=== PATIENT | male | born 1950 | race Caucasian/White ===

== ENCOUNTER 2017-12-17 21:05 | Emergency (ER) | payer MEDICARE ==
[2017-12-17 21:54] VITALS: BP 107/69
[2017-12-17] MEDS ORDERED: Amoxicillin/Clavulanate TAB* 500 MG PO ONE (22:21)
--- NOTE | 2017-12-17 22:21 | UC ---
Throat Pain/Nasal Vinny HPI - HPI Summary HPI Summary: Patient had a fever earlier in evening. Has had sinus pain and congestion has had left upper jaw pain and dental pain--symptoms been going on for almost 2 weeks - History of Current Complaint Hx Obtained From: Patient Onset/Duration: Gradual Onset, Lasting Weeks - 2 Pain Intensity: 6 Pain Scale Used: 0-10 Numeric Cough: Nonproductive Associated Signs & Symptoms: Positive: Negative <Jeana Matthews - Last Filed: 12/31/17 18:53> <Fauzia Corral - Last Filed: 01/01/18 08:25> - History of Current Complaint Chief Complaint: UCRespiratory Stated Complaint: FEVER, EAR ACHE, TOOTH PAIN, HEADACHE Time Seen by Provider: 12/17/17 22:13 - Allergies/Home Medications Allergies/Adverse Reactions: Allergies Allergy/AdvReac Type Severity Reaction Status Date / Time oxycodone Allergy NUMBNESS/TI Verified 12/17/17 21:55 NGLING Home Medications: Home Medications Canagliflozin (NF) [Invokana (NF)] 12/17/17 [History] Ibuprofen TAB* [Advil TAB*] 400 mg PO Q3H PRN 12/17/17 [History Confirmed ] Multivit-Min/Folic/Vit K/Lycop [Men's Multivitamin Caplet] 1 each PO DAILY 12/17 [History Confirmed 12/17/17] glipiZIDE [Glipizide ER] 5 mg PO DAILY 12/17/17 [History Confirmed 12/17/17] PMH/Surg Hx/FS Hx/Imm Hx Previously Healthy: No Endocrine History: Diabetes, Hypothyroidism, Dyslipidemia Cardiovascular History: Hypertension, Atrial Fibrillation - Surgical History Surgical History: Yes Surgery Procedure, Year, and Place: prostatectomy. rotator cuff surgery - Family History Known Family History: Positive: Cardiac Disease, Other - CANCER - Social History Occupation: Works From/At Home Lives: With Family Alcohol Use: Occasionally Substance Use Type: None Smoking Status (MU): Never Smoked Tobacco - Immunization History Most Recent Pneumonia Vaccination: 10/19/15 <Jeana Matthews - Last Filed: 12/31/17 18:53> Review of Systems Constitutional: Fever, Chills, Fatigue Skin: Negative Eyes: Negative ENT: Sore Throat, Nasal Discharge, Sinus Congestion, Sinus Pain/Tenderness Respiratory: Negative Cardiovascular: Negative Gastrointestinal: Negative Genitourinary: Negative Motor: Negative Neurovascular: Negative Musculoskeletal: Negative Neurological: Negative Psychological: Negative Is Patient Immunocompromised?: No All Other Systems Reviewed And Are Negative: Yes <Jeana Matthews - Last Filed: 12/31/17 18:53> Physical Exam Triage Information Reviewed: Yes Appearance: Well-Appearing, No Pain Distress, Well-Nourished Vital Signs: Initial Vital Signs Temp 99.9 F 12/17/17 21:49 Pulse 103 12/17/17 21:49 Resp 16 12/17/17 21:49 BP 107/69 12/17/17 21:49 Pulse Ox 96 12/17/17 21:49 Vital Signs Reviewed: Yes Eye Exam: Normal Eyes: Positive: Conjunctiva Clear ENT Exam: Normal ENT: Positive: Normal ENT inspection, Pharynx normal, Nasal congestion, Nasal drainage, TMs normal, Dental tenderness, Sinus tenderness, Uvula midline. Negative: Tonsillar swelling, Tonsillar exudate, Trismus Dental Exam: Normal Neck exam: Normal Neck: Positive: Supple, Nontender Respiratory Exam: Normal Respiratory: Positive: Chest non-tender, Lungs clear, Normal breath sounds, No respiratory distress, No accessory muscle use Cardiovascular Exam: Normal Cardiovascular: Positive: RRR, No Murmur, Pulses Normal, Brisk Capillary Refill Musculoskeletal Exam: Normal Musculoskeletal: Positive: Strength Intact, ROM Intact, No Edema Neurological Exam: Normal Neurological: Positive: Alert, Muscle Tone Normal Psychological Exam: Normal Psychological: Positive: Normal Response To Family Skin Exam: Normal <Jeana Matthews - Last Filed: 12/31/17 18:53> Vital Signs: Initial Vital Signs Temp 99.9 F 12/17/17 21:49 Pulse 103 12/17/17 21:49 Resp 16 12/17/17 21:49 BP 107/69 12/17/17 21:49 Pulse Ox 96 12/17/17 21:49 <Fauzia Corral - Last Filed: 01/01/18 08:25> Throat Pain/Nasal Course/Dx - Course Assessment/Plan: Augmentin, flonase, increase fluids, mucinex follow with pcp prn - Differential Dx/Diagnosis Provider Diagnoses: acute rhinosinusitis <Jeana Matthews - Last Filed: 12/31/17 18:53> Discharge - Sign-Out/Discharge Documenting (check all that apply): Discharge/Admit/Transfer - Billing Disposition and Condition Condition: STABLE Disposition: Home <Jeana Matthews - Last Filed: 12/31/17 18:53> - Billing Disposition and Condition Condition: STABLE Disposition: Home <Fauzia Corral - Last Filed: 01/01/18 08:25> - Discharge Plan Condition: Stable Disposition: HOME Prescriptions: Amoxicillin/Clavulanate TAB* [Augmentin TAB 875*] 875 mg PO BID #19 tab Fluticasone NASAL SPRAY 50MCG* [Flonase NASAL SPRAY 50MCG*] 2 spray BOTH NARES DAILY #1 btl Patient Education Materials: Sinusitis (ED), How to Use Nasal Minetto (ED) Referrals: Evan Ordaz MD [Primary Care Provider] - If Needed Attestation Statement User Type: Provider Provider Attestation: I was available for consult. This patient was seen by the [facility]. The patient was not presented to, seen by, or examined by me. -Ljj <Fauzia Corral - Last Filed: 01/01/18 08:25>
== END 2017-12-17 22:35 | disposition home or self-care (01) ==
LOC: UCEAST 21:05
DX: J01.90 Acute sinusitis, unspecified (principal); E11.9 Type 2 diabetes mellitus without complications; Z79.84 Long term (current) use of oral hypoglycemic drugs; E03.9 Hypothyroidism, unspecified; E78.5 Hyperlipidemia, unspecified; I10 Essential (primary) hypertension; I48.91 Unspecified atrial fibrillation; Z90.79 Acquired absence of other genital organ(s); Z88.5 Allergy status to narcotic agent; Z82.49 Family history of ischemic heart disease and other diseases of the circulatory system; Z80.9 Family history of malignant neoplasm, unspecified
CPT/HCPCS: 99212; A9270-GY; G0463